=== PATIENT | female | born 1990 | race Caucasian/White ===

== ENCOUNTER 2016-09-17 23:30 | Emergency (ER) | payer SELFPAY ==
[~2016-09-17] VITALS: Ht 154.9 cm; Wt 62.6 kg
[2016-09-17 23:35] VITALS: BP 115/71
--- NOTE | 2016-09-17 23:42 | NUR ---
TO ER BED 6
--- NOTE | 2016-09-17 23:46 | NUR ---
Patient being evaluated by Dr. Mauricio at bedside.
--- NOTE | 2016-09-17 23:58 | NUR ---
25/F c/o abdominal pain 30 mins prior to arrival. Pt reprots being 18 weeks , G2 P-1 A-1. Denies N/V/D. Denies vaginal bleeding. VSS.
--- NOTE | 2016-09-18 00:46 | NUR ---
Pt taken to US VIA W/C.
--- NOTE | 2016-09-18 01:58 | NUR ---
Patient back from [facility] and placed in bed 6.
--- NOTE | 2016-09-18 02:06 | NUR ---
Pt resting comfortably in bed. All needs addressed. Offered warm blanket. No distress noted.
--- NOTE | 2016-09-18 02:40 | NUR ---
Pt requesting to leave and come back tomorrow for her results. Pt states "I'm tired and I'm hungry. I can just get my results tomorrow."
--- NOTE | 2016-09-18 03:04 | NUR ---
PATIENT ELOPED FROM FACILITY. DISCHARGE INSTRUCTIONS NOT GIVEN TO PATIENT. DR. SANCHEZ NOTIFIED.
== END 2016-09-18 03:04 | disposition left against medical advice (07) ==
LOC: MED 23:30
DX: O99.612 Diseases of the digestive system complicating pregnancy, second trimester (principal); Z3A.20 20 weeks gestation of pregnancy
CPT/HCPCS: 76705; 76805; 81002; 81025; 99284